=== PATIENT | male | born 1950 | race Caucasian/White ===

== ENCOUNTER 2018-09-25 | Outpatient (CLI) | payer MEDICARE ==
--- NOTE | 2018-09-25 09:42 | RAD ---
EXAM: Chest PA and lateral: HISTORY: Preoperative exam COMPARISON: None FINDINGS: Heart: Normal cardiac silhouette Aorta: Unremarkable Pulmonary vessels: Normal Costophrenic angles: Costophrenic angles are clear. Lungs: No consolidation or masses. Pneumothorax: No pneumothorax Osseous structures: No osseous abnormalities IMPRESSION: No acute cardiopulmonary process.
[2018-09-25 10:09] LABS: #Basophils 0.1 thou/uL (0.0-0.2); #Eosinphils 0.4 thou/uL (0.0-0.7); #Lymphocytes 1.9 thou/uL (1.20-3.40); #Monocytes 0.5 thou/uL (0.11-0.59); #Neutrophils 2.7 thou/uL (1.40-6.50); %Basophils 0.9 % (0.0-1.0); %Eosinophils 6.8 % (0.0-10.0); %Lymphocytes 34.1 % (21.0-51.0); %Monocytes 9.2 % (0.0-10.0); Hemoglobin 13.2 g/dL (14.0-18.0); Mean Corpuscular HGB CONC 33.3 g/dL (32.0-36.0); Mean Corpuscular Volume 90.2 fL (78.0-98.0); Mean Platelet Volume 7.4 fL (7.4-10.4); Platelet Count 217 thou/uL (130-400); RBC Distribution Width 12.7 % (11.5-14.5); Red Blood Cell (RBC) Count 4.41 mill/uL (4.70-6.10); White Blood Cell (WBC) Count 5.5 thou/uL (4.8-10.8)
[2018-09-25 10:12] LABS: Bilirubin Negative (Negative); Blood, Urine Negative (Negative); Clarity CLEAR (Clear); Glucose, Urine (Dipstick) Negative (Negative); Leukocyte Negative (Negative); Nitrite Negative (Negative); Protein, Urine (Dipstick) Negative (Neg-Trace); Specific Gravity, Urine 1.023 (1.002-1.036); Urobilinogen 0.2 mg/dL (0.2-1.0)
[2018-09-25 10:16] LABS: Prothrombin Time 13.7 SEC (12.0-14.7)
[2018-09-25 10:17] LABS: Bacteria/HPF None Seen HPF (None Seen); Hyaline Casts/LPF 0-3 HYALINE CAST LPF (0-3 Hyaline); RBC/HPF 0-3 HPF (0-3); Squamous Epithelial None Seen HPF (0-3); WBC/HPF 0-3 HPF (0-3)
[2018-09-25 10:27] LABS: Anion Gap 12 mmol/L (10-20); BUN (Urea Nitrogen) 19 mg/dL (8.4-25.7); Calc. Creatinine Clearance 0 mL/min (70-130); Calcium 8.9 mg/dL (7.8-10.44); Carbon Dioxide 26 mmol/L (23-31); Chloride 109 mmol/L (98-107); Estimated GFR-MDRD 90; Glucose 106 mg/dL (80-115); Potassium 3.5 mmol/L (3.5-5.1); Sodium 143 mmol/L (136-145)
== END 2018-09-25 00:01 | disposition home or self-care (01) ==
LOC: LABBT
PROVIDERS: ATTEND Orthopaedic Surgery
DX: Z01.818 Encounter for other preprocedural examination (principal); M17.11 Unilateral primary osteoarthritis, right knee
CPT/HCPCS: 71046; 80048; 81001; 85025; 85610; 87081; 93005; 93010

== ENCOUNTER 2018-10-07 06:15 | Inpatient (IN) | payer MEDICARE ==
[2018-10-07] MEDS ORDERED: Fentanyl 100 MCG/2 ML VIAL ONE ×4 (06:33→11:12)
[2018-10-07] MEDS ORDERED: Midazolam HCl 2 mg/2 ml Vial ONE ×2 (07:02→08:09)
[2018-10-07] MEDS ORDERED: Acetaminophen 325 MG TAB PO PRN (07:07)
[2018-10-07] MEDS ORDERED: diphenhydrAMINE 25 MG CAP PO PRN (07:07)
[2018-10-07] MEDS ORDERED: Promethazine HCl 25 MG/ML VIAL IM PRN ×2 (07:07→12:03)
[2018-10-07] MEDS ORDERED: Fentanyl 100 MCG/2 ML VIAL SLOW IVP PRN ×2 (07:07)
[2018-10-07] MEDS ORDERED: Zolpidem Tartrate 5 MG TAB PO PRN (07:07)
[2018-10-07] MEDS ORDERED: Ondansetron PF 4 MG/2 ML Vial IVP PRN (07:07)
[2018-10-07] MEDS ORDERED: Baclofen 10 MG TAB PO PRN (07:09)
[2018-10-07] MEDS ORDERED: Sodium Chloride 0.9% 100 ML ONE (07:19)
[2018-10-07] MEDS ORDERED: Tranexamic Acid 1,000 MG/10 ML VIAL ONE (07:19)
[2018-10-07] MEDS ORDERED: Propofol 1,000 MG/100 ML VIAL IV ONE (07:32)
[2018-10-07] MEDS ORDERED: Bupivacaine HCl 0.5%/Epinephrine 1:200,000/PF 30 ml Vial ONE (08:51)
[2018-10-07] MEDS ORDERED: Ondansetron PF 4 MG/2 ML Vial ONE (10:17)
--- NOTE | 2018-10-07 10:21 | RAD ---
Radiograph right knee 2 views: 10/07/2018 HISTORY: 68-year-old male status post surgery for right knee pain FINDINGS: Metallic prostheses covered the articular surfaces of the tibial plateau and distal femur. Resurfacin g changes of posterior aspect of patella. Gas within the joint space and subcutaneous emphysema indicate very recent surgical status. IMPRESSION: Very recently status post total right knee replacement arthroplasty
--- NOTE | 2018-10-07 10:42 | RAD ---
SINGLE VIEW OF THE CHEST: Comparison: 09-25-18 History: Aspiration pneumonia. FINDINGS: Single view of the chest shows a normal sized cardiomediastinal silhouette. There is no evidence of c onsolidation, mass, or pleural effusion. The bones are unremarkable. IMPRESSION: No evidence of acute cardiopulmonary disease. POS: [facility]
[2018-10-07 11:58] LABS: #Eosinphils 0.2 thou/uL (0.0-0.7); #Lymphocytes 1.5 thou/uL (1.20-3.40); #Monocytes 0.4 thou/uL (0.11-0.59); #Neutrophils 6.8 thou/uL (1.40-6.50); %Basophils 0.2 % (0.0-1.0); %Eosinophils 1.9 % (0.0-10.0); %Lymphocytes 16.9 % (21.0-51.0); %Monocytes 4.5 % (0.0-10.0); %Neutrophils 76.5 % (42.0-75.0); Hemoglobin 13.3 g/dL (14.0-18.0); Mean Corpuscular HGB CONC 32.8 g/dL (32.0-36.0); Mean Corpuscular Hemoglobin 29.7 pg (27.0-31.0); Mean Corpuscular Volume 90.5 fL (78.0-98.0); Mean Platelet Volume 7.1 fL (7.4-10.4); Platelet Count 235 thou/uL (130-400); RBC Distribution Width 12.7 % (11.5-14.5); Red Blood Cell (RBC) Count 4.47 mill/uL (4.70-6.10); White Blood Cell (WBC) Count 8.9 thou/uL (4.8-10.8)
[2018-10-07] MEDS ORDERED: Ondansetron HCl/PF 4 MG/2 ML Vial IVP PRN (12:03)
[2018-10-07] MEDS ORDERED: Promethazine HCl 25 MG/ML VIAL SLOW IVP PRN (12:03)
--- NOTE | 2018-10-07 12:05 | CON ---
DATE OF CONSULTATION: 10/07/2018 HISTORY OF PRESENT ILLNESS: Linwood Baptiste is a 68-year-old gentleman, status post right total knee surgery. Because of his history of Parkinson disease, his surgery was done under local anesthesia with IV sedation as per Anesthesia. Postoperative, he was found to be hypoxic, his sats dropped, placed on a Ventimask. His sats are still low in the high 80s. He was then placed on a BiPAP to which he has done better. Anesthesia noted that he was having microaspiration. X-ray taken postop shows no obvious pneumonia or infiltrates. On BiPAP, he appears comfortable. Denies any pain or difficulty breathing. He has never smoked. He tells me his primary care physician at [facility]. PAST MEDICAL HISTORY: Pertinent for hypertension, Parkinson disease, arthritis. CURRENT MEDICATIONS: 1. Protonix. 2. Amlodipine. 3. Meloxicam. 4. Gabapentin. 5. Carbidopa. 6. Baclofen. 7. Vitamins. PAST SURGERIES: Include otherwise, shoulder surgery, hernia, cholecystectomy. SOCIAL HISTORY: He is a teacher. Alcohol, none. Tobacco, none. FAMILY HISTORY: Otherwise unremarkable. REVIEW OF SYSTEMS: Ten-point negative. PHYSICAL EXAMINATION: VITAL SIGNS: Postop in the recovery room, his pulse is 80, respirations are 20, saturations 95% on BiPAP, 50% FiO2, blood pressure 130/80. GENERAL: Awake, alert, responsive. No pain. No discomfort. CHEST: Decreased breath sounds. No wheezing. CARDIAC: Normal S1 and S2. No gallops. ABDOMEN: No masses. LABORATORY DATA: His labs prior to surgery and chest x-ray were unremarkable. Repeat lab has been ordered. To note his pre-admission lab, white count 5000, hemoglobin and hematocrit 13 and 39, platelet count is normal. His chemistry profile was unremarkable. EKG was negative. IMPRESSION: Respiratory failure, retained secretions, microaspiration, status post right total knee, Parkinson's, hypertension, nonsmoker. Empirically started on clindamycin and neb treatments. I will transfer him to MICU. His condition gets worse. He can probably go to the ICU. Pulmonary/Critical Care will follow. Discuss with family as they arrive. Consultation note, 70 minutes, 50% direct patient care. Job ID: [id number]
[2018-10-07 12:20] LABS: ALT (SGPT) Less than 7 U/L (8-55); AST (SGOT) 19 U/L (5-34); Albumin 4.2 g/dL (3.4-4.8); Alkaline Phosphatase 61 U/L (40-150); Anion Gap 13 mmol/L (10-20); BUN (Urea Nitrogen) 23 mg/dL (8.4-25.7); Bilirubin, Total 0.9 mg/dL (0.2-1.2); Calc. Creatinine Clearance 85 mL/min (70-130); Calcium 8.5 mg/dL (7.8-10.44); Carbon Dioxide 25 mmol/L (23-31); Chloride 105 mmol/L (98-107); Estimated GFR-MDRD 82; Glucose 115 mg/dL (80-115); Potassium 3.7 mmol/L (3.5-5.1); Protein, Total 6.2 g/dL (5.8-8.1); Sodium 139 mmol/L (136-145)
[2018-10-07] MEDS: Carbidopa/Levodopa 25-100 mg Tablet PO SCH ×3 (13:14→16:53)
[2018-10-07] MEDS: Clindamycin/D5W 600 MG in Premix Bag 1 BAG IVPB SCH ×2 (13:14→20:19)
[2018-10-07] MEDS: Sodium Chloride 0.9% 1,000 ML IV SCH ×2 (13:14→22:26)
[2018-10-07] MEDS: Calcium Carbonate + Vit D 1 TAB PO SCH (13:15)
[2018-10-07] MEDS: Amlodipine 10 MG TAB PO SCH (13:15)
[2018-10-07] MEDS: Ascorbic Acid 500 mg Chewable Tablet PO SCH (13:15)
[2018-10-07] MEDS: Aspirin 81 mg Enteric Coated Tablet PO SCH ×2 (13:15→22:28)
[2018-10-07] MEDS ORDERED: PROPOFOL 200 MG/20 ML VIAL ONE (13:22)
[2018-10-07] MEDS ORDERED: Ketorolac Tromethamine 30 MG/ML VIAL ONE (13:22)
--- NOTE | 2018-10-07 13:36 | OP ---
DATE OF PROCEDURE: 10/07/2018 PREOPERATIVE DIAGNOSIS: End-stage tricompartmental osteoarthritis, right knee. POSTOPERATIVE DIAGNOSIS: End-stage tricompartmental osteoarthritis, right knee. PROCEDURE PERFORMED: Cemented cruciate sparing computer-assisted navigated right total knee arthroplasty. HASH SLINGER: David Husain PA-C ANESTHESIA: Spinal with monitored IV anesthesia. COMPONENT USED: [email or web address] Triathlon primary cemented cruciate sparing size 6 femoral component, with a size 5 cemented primary tibial base plate, 11 mm polyethylene fixed bearing insert, and an A32 patellar button. TOURNIQUET TIME: 58 minutes at 300 mmHg. ESTIMATED BLOOD LOSS: Less than 100. Input was 200 mL crystalloid. Output was 600 mL clear yellow urine. FINDINGS: End-stage severe degenerative tricompartmental disease, [id number] arthrosis, periarticular osteophyte formation, large serous effusion with Valdez cyst changes consistent with end-stage severe degenerative tricompartmental disease. DRAINS: None. SPECIMENS: None. COMPLICATIONS: None. COUNTS: Correct. INDICATIONS FOR SURGERY: Linwood is a 68-year-old white male, who has had progressive right knee pain walking for the last 5 to 7 years. He has failed conservative management, elected to proceed with total knee arthroplasty as definitive treatment for his pain. PROCEDURE IN DETAIL: After informed consent was obtained in the preoperative holding area, the patient was taken to the operative suite where general anesthesia was induced. Once adequate level of general anesthesia was obtained, the patient was positioned and a well-padded tourniquet was placed around the right proximal thigh. The right lower extremity was then prepped and draped in the usual sterile fashion. Prior to exsanguination, a time-out was called and all members of the surgical team agreed upon site, surgeon, and patient. The extremity was then exsanguinated and the tourniquet was raised. A midline longitudinal incision was then made directly over the patella extending 2 fingerbreadths above the superior pole of the patella and 2 fingerbreadths inferior to the inferior patellar pole of the patella. Deeper subcutaneous layers were dissected sharply and local bleeding was controlled with Bovie electrocautery. A quad tendon longitudinal split was then made sharply and a median parapatellar arthrotomy was carried out both sharp and with Bovie electrocautery, carried down to 1 fingerbreadth medial to the tibial tubercle. The knee was then placed into flexion and the patella was everted nicely, and a copious fat pad ectomy was performed, allowing for greater exposure of the tibia. The computer-assisted distal femoral fiducial was then placed and pinned firmly, and the distal femoral cutting guide was pinned firmly into place. The oscillating saw was then used to remove the appropriate amount of bone. The 4-in-1 cutting block was then placed on the distal femur and the oscillating saw was used to remove the appropriate amount of bone off the anterior, posterior, and chamfer cuts. After completion of bone cuts, the anterior cruciate ligament was resected sharply and the posterior cruciate ligament retractor was placed and the tibia was subluxed for better exposure. Partial meniscectomies were carried out, and the tibial computer-assisted fiducial was pinned, and the cutting guide was placed. Oscillating saw was then used to remove the bone, with Hohmann retractors used to take care and protect the collateral ligaments. After the tibial resection was performed, a laminar hospice nurse was placed in between the freshened bone cuts. The knee placed at 90 degrees and further bilateral meniscectomies were carried out, and the curved osteotome and curettage were used to remove any excess bone spurs in the posterior compartment. The trial femoral component, tibial baseplate were placed with the appropriate polyethylene trial insert with an appropriate polyethylene spacer and patellar button. The knee was taken through full range of motion with flexion and extension from 0 to 90 degrees and patellar broach squarely in the trochlea without any squinting or subluxation noted. The knee was also stable to varus and valgus stressing at 0, 15, 45, and 90 degrees of flexion. The drawer was negative. All trial components were then removed and the keel punch was used to provide the appropriate defect in the tibia with a mallet. The freshened bone cuts were copiously irrigated with pulsatile lavage of about 1.5 L to remove all excess debris. The freshened bone cuts were then dried with suction and lap sponge. The knee was placed in flexion and retractors were placed to provide access to all bone cuts. Tobramycin-impregnated methyl methacrylate cement was then placed on the freshened bone cuts and implants which were malleted firmly into place. Curettage and [place] elevators were used to remove any excess bone cement. The knee was placed into full extension and the patellar button was placed under compression, and the cement was allowed to cure. Once completed, the components were again taken through full range of motion and copious irrigation of the knee was carried out with another liter of normal saline. All components were inspected fully with full range of motion and varus and valgus stressing. There was no laxity noted and full extension was observed clinically. Primary closure was accomplished with #2 interrupted Vicryl stitch of the arthrotomy defect. This was oversewn with a #2 running Quill barbed stitch. The subcutaneous layer was then closed with a running 0 barbed Monocryl stitch and skin closure accomplished with a running subcuticular 3-0 Monocryl barbed Quill stitch and augmented with cement on the skin. Tourniquet was lowered. Good spontaneous return of distal pulses was noted clinically and a sterile dressing was applied to the incision. The procedure was terminated without any complications. The patient was awakened in the operative suite and taken to the recovery room in stable condition. Job ID: [id number]
[2018-10-07] MEDS: Ketorolac Tromethamine 30 MG/ML VIAL IVP SCH ×2 (14:48→22:27)
[2018-10-07] MEDS: CEFAZOLIN 2 GM in Premix Bag 1 BAG IVPB SCH ×2 (14:51→22:27)
[2018-10-07] MEDS: HYDROcodone/Acetaminophen 10/325 mg Tablet PO PRN ×2 (16:53→23:56)
[2018-10-07] MEDS: Gabapentin 300 MG CAP PO SCH (22:28)
[2018-10-07] MEDS: Carbidopa/Levodopa CR 50-200 mg Tablet PO SCH (22:28)
[2018-10-08] MEDS: Clindamycin/D5W 600 MG in Premix Bag 1 BAG IVPB SCH ×2 (03:18→12:07)
[2018-10-08] MEDS: Ketorolac Tromethamine 30 MG/ML VIAL IVP SCH ×3 (05:50→22:12)
[2018-10-08] MEDS: HYDROcodone/Acetaminophen 10/325 mg Tablet PO PRN ×3 (05:51→14:09)
[2018-10-08 06:51] LABS: Hemoglobin 11.2 g/dL (14.0-18.0); Mean Corpuscular HGB CONC 32.1 g/dL (32.0-36.0); Mean Corpuscular Hemoglobin 29.3 pg (27.0-31.0); Mean Corpuscular Volume 91.1 fL (78.0-98.0); Mean Platelet Volume 7.2 fL (7.4-10.4); Platelet Count 169 thou/uL (130-400); RBC Distribution Width 12.7 % (11.5-14.5); Red Blood Cell (RBC) Count 3.84 mill/uL (4.70-6.10); White Blood Cell (WBC) Count 10.5 thou/uL (4.8-10.8)
[2018-10-08] MEDS ORDERED: Promethazine HCl 25 MG/ML VIAL IM PRN (07:14)
[2018-10-08] MEDS ORDERED: Zolpidem Tartrate 5 MG TAB PO PRN (07:14)
[2018-10-08] MEDS ORDERED: Ondansetron PF 4 MG/2 ML Vial IVP PRN (07:14)
[2018-10-08] MEDS ORDERED: Acetaminophen 325 MG TAB PO PRN (07:14)
[2018-10-08] MEDS ORDERED: diphenhydrAMINE 25 MG CAP PO PRN (07:14)
[2018-10-08] MEDS ORDERED: Ferrous Gluconate 324 MG TAB PO SCH (08:00)
--- NOTE | 2018-10-08 08:14 | RAD ---
CHEST 1 VIEW: HISTORY: Followup pneumonia. COMPARISON: 10/07/2018. FINDINGS: There is some confluent parenchymal change in the left lower lobe retrocardiac region with some assoc iated left costophrenic angle blunting, evidence for a small pleural effusion. Mild bilateral vascul ar congestion. IMPRESSION: Evidence for left lower lobe pneumonia with small left pleural effusion and bilateral vascular conges tion. Followup for complete clearing. POS: OFF
[2018-10-08] MEDS ORDERED: hydrALAZINE 25 MG TAB PO PRN (08:39)
[2018-10-08] MEDS ORDERED: Senokot S 8.6-50 MG TAB PO SCH (09:00)
[2018-10-08] MEDS ORDERED: Multivitamin W/ Minerals 1 TAB PO SCH (09:00)
--- NOTE | 2018-10-08 09:45 | PRG ---
DATE OF SERVICE: 10/08/2018 SUBJECTIVE: This morning, he is awake, alert, and responsive. X-ray shows a left retrocardiac density, possibly aspiration pneumonia. OBJECTIVE: VITAL SIGNS: Pulse 82, respiratory rate 16, sats 100% on 1 L, blood pressure 140/70. GENERAL: He is awake, alert, responsive, no distress. No cough. CHEST: Decreased breath sounds. No wheezing. CARDIAC: Normal S1 and S2. No gallops. IMPRESSION: 1. Status post right total knee. 2. Hypoxemic respiratory failure postop with minimal aspiration resolved. PLAN: He will be transferred out of the MICU to the surgical floor. Continue PT. Switch antibiotics to p.o. medication tomorrow. Job ID: [id number] [facility]
[2018-10-08] MEDS: Ascorbic Acid 500 mg Chewable Tablet PO SCH (10:21)
[2018-10-08] MEDS: Calcium Carbonate + Vit D 1 TAB PO SCH (10:23)
[2018-10-08] MEDS: Aspirin 81 mg Enteric Coated Tablet PO SCH ×2 (10:23→20:35)
[2018-10-08] MEDS: Lactinex Tablet PO SCH (10:24)
[2018-10-08] MEDS: Amlodipine 10 MG TAB PO SCH (10:24)
[2018-10-08] MEDS: Carbidopa/Levodopa 25-100 mg Tablet PO SCH ×3 (10:24→16:31)
[2018-10-08] MEDS: Ferrous Gluconate 324 MG TAB PO SCH ×2 (10:25→20:36)
[2018-10-08] MEDS: Multivitamin W/ Minerals 1 TAB PO SCH (10:25)
[2018-10-08] MEDS: Senokot S 8.6-50 MG TAB PO SCH ×2 (10:25→20:37)
--- NOTE | 2018-10-08 10:37 | PRG ---
DATE OF SERVICE: 10/08/2018 SUBJECTIVE: Linwood is a 68-year-old male, who is postop day #1 from right total knee arthroplasty. He had a little bit of aspiration yesterday during the case, and therefore, he was placed in intensive care unit. Dr. Goins was consulted to observe him overnight, and he was given supplemental oxygen and BiPAP. He has done incredibly well overnight and he has improved. He is now breathing on the nasal cannula and saturating about 98%. He has no complaints and no shortness of breath. OBJECTIVE: VITAL SIGNS: Temperature 98.8, pulse 82, respiratory rate 16 and nonlabored, and O2 saturations 100% on room air. GENERAL: He is alert and oriented to person, place, time and situation, grossly nonfocal, appropriate and responsive to examiner. EXTREMITIES: Incision is clean without erythema. There is no strikethrough and he is neurovascularly intact in the right lower extremity. LABORATORY DATA: Hemoglobin and hematocrit of 11.2 and 35.0. IMPRESSION: 1. This is a 68-year-old male postop day #1 right total knee arthroplasty. 2. Woazbcm-Kwvus-Mrfbv disease. 3. Parkinson disease. 4. Hypertension. 5. Osteoarthritis. PLAN: Continue current care. Transfer to floor. I think he is okay to move to the program and start progressing toward discharge. Job ID: [id number]
[2018-10-08] MEDS: Sodium Chloride 0.9% 1,000 ML IV SCH ×2 (12:12→17:51)
[2018-10-08 13:00] VITALS: BMI 23.7
--- NOTE | 2018-10-08 16:20 | CON ---
DATE OF CONSULTATION: PRIMARY CARE PHYSICIAN: Dr. Villalta at [facility]. MORNING SHOW PRODUCER: Dr. Peterson. HISTORY OF PRESENT ILLNESS: Mr. Baptiste is a pleasant 68-year-old gentleman, who has a history of Parkinson disease as well as hypertension. He was admitted for an elective right total knee replacement. He had the procedure performed yesterday, and he had the procedure done under local anesthesia due to his Parkinson disease, and postoperatively, he was noted to have some evidence of hypoxemia, and there was some concern that he may have had some microaspiration, and for this reason, he was placed in the IMCU. He was placed on BiPAP for a short period of time. Today, I see him the following day. He is off BiPAP and says he feels fine. He says he never noticed any problems with regard to breathing difficulty and denies feeling short of breath at this time. He also denies any significant cough. There is no fever or chills. He denies any nausea. No vomiting. He denies any abdominal pain, but he does have significant gastroesophageal reflux disease and states that he would like to continue his medication for reflux. REVIEW OF SYSTEMS: All systems were reviewed and are negative except for that mentioned in the history of present illness. PAST MEDICAL HISTORY: Significant for Parkinson disease, hypertension, osteoarthritis, and CMT. PAST SURGICAL HISTORY: He has had shoulder surgery and hernia repair as well as cholecystectomy. ALLERGIES: ANTIHISTAMINES AND ALKYLAMINE. SOCIAL HISTORY: He is a retired teacher in high school. He denies any alcohol use at this time, but used to drink. He is a nonsmoker. He is and has 2 children. Code status is full code. FAMILY HISTORY: He said all of his relatives lived into their 90s. His mother lived to be 93. No known medical conditions. MEDICATIONS: Include: 1. Amlodipine 10 mg daily. 2. Vitamin C. 3. Baclofen 10 mg p.r.n. 4. Carbidopa/levodopa 3 times a day. 5. Neurontin 300 mg q.p.m. 6. Meloxicam 15 mg daily. 7. Pantoprazole 40 mg daily. PHYSICAL EXAMINATION: GENERAL: He is alert and oriented. He appears to be in no acute distress. He is well developed and well nourished. VITAL SIGNS: Blood pressure was 141/72, heart rate 82, respiratory rate of 16, temperature is 98.8. HEENT: His pupils are equal, round, and reactive to light. Extraocular muscles are intact. His sclerae are anicteric. Throat; no erythema, no exudates. NECK: No adenopathy. No bruits. LUNGS: He has some bilateral wheezing as well as occasional rhonchi and some rales at the bases. Good excursion. CARDIOVASCULAR: He has normal S1 and S2. There is no S3 or S4. He did have a slight 2/6 systolic murmur. ABDOMEN: Soft. It is nontender and nondistended. Positive for bowel sounds. There was no rebound. No guarding. No organomegaly. EXTREMITIES: There was no edema. No calf tenderness. No joint effusions. SKIN AND INTEGUMENT: There are no skin changes. No rash. NEUROLOGIC: Cranial nerves 2 through 12 are intact, and muscle strength is intact. LABORATORY RESULTS: White blood cell count was 10.5, hemoglobin 11.2, hematocrit is 35, platelet count is 169. His sodium was 139, potassium 3.7, chloride is 105, CO2 is 25, BUN of 23, creatinine 0.92, glucose is 115. ASSESSMENT: 1. This is a pleasant 68-year-old gentleman, who is being admitted for an elective right total knee replacement. Postoperatively, he had evidence of aspiration and an acute hypoxic respiratory failure. He is currently in the IMCU. He has already been seen by the process artist, and he has been placed on clindamycin with regard to the aspiration. We will continue clindamycin, and we will add Florastor for protection against development of opportunistic diarrhea. 2. Hypertension. We will continue his home medications, amlodipine and have p.r.n. medications available. 3. Parkinson disease. This appears to be clinically stable. We will continue carbidopa and levodopa. 4. Gastroesophageal reflux disease. Continue pantoprazole, and we will be happy to follow along with you. Job ID: [id number]
[2018-10-08] MEDS: Calcium Carbonate 500 MG ChewTAB PO PRN ×2 (17:38→22:19)
[2018-10-08] MEDS ORDERED: Tamsulosin HCl 0.4 MG CAP PO SCH (18:45)
[2018-10-08] MEDS: Clindamycin 150 MG CAP PO SCH (20:35)
[2018-10-08] MEDS: Gabapentin 300 MG CAP PO SCH (20:36)
[2018-10-08] MEDS: Carbidopa/Levodopa CR 50-200 mg Tablet PO SCH (22:12)
[2018-10-09] MEDS: HYDROcodone/Acetaminophen 10/325 mg Tablet PO PRN ×2 (00:30→23:52)
[2018-10-09] MEDS: Sodium Chloride 0.9% 1,000 ML IV SCH ×3 (00:34→21:11)
[2018-10-09] MEDS: Clindamycin 150 MG CAP PO SCH (05:01)
[2018-10-09 05:05] LABS: Hemoglobin 10.1 g/dL (14.0-18.0); Mean Corpuscular Volume 91.1 fL (78.0-98.0); Mean Platelet Volume 7.5 fL (7.4-10.4); Platelet Count 153 thou/uL (130-400); RBC Distribution Width 12.7 % (11.5-14.5); Red Blood Cell (RBC) Count 3.26 mill/uL (4.70-6.10); White Blood Cell (WBC) Count 8.5 thou/uL (4.8-10.8)
[2018-10-09] MEDS: Ketorolac Tromethamine 30 MG/ML VIAL IVP SCH ×2 (05:08→13:16)
[2018-10-09] MEDS: Carbidopa/Levodopa 25-100 mg Tablet PO SCH ×3 (08:57→16:50)
[2018-10-09] MEDS: Lactinex Tablet PO SCH (08:57)
[2018-10-09] MEDS: Ascorbic Acid 500 mg Chewable Tablet PO SCH (08:57)
[2018-10-09] MEDS: Multivitamin W/ Minerals 1 TAB PO SCH (08:57)
[2018-10-09] MEDS: Senokot S 8.6-50 MG TAB PO SCH ×2 (08:57→21:08)
[2018-10-09] MEDS: Tamsulosin HCl 0.4 MG CAP PO SCH (08:57)
[2018-10-09] MEDS: Amlodipine 10 MG TAB PO SCH (08:58)
[2018-10-09] MEDS: Calcium Carbonate + Vit D 1 TAB PO SCH (08:58)
[2018-10-09] MEDS: Aspirin 81 mg Enteric Coated Tablet PO SCH ×2 (08:59→21:07)
[2018-10-09] MEDS: Ferrous Gluconate 324 MG TAB PO SCH ×2 (08:59→21:08)
[2018-10-09 09:00] VITALS: BP 136/67
--- NOTE | 2018-10-09 09:32 | PRG ---
DATE OF SERVICE: 10/09/2018 SUBJECTIVE: This morning, he is better and less short of breath. OBJECTIVE: VITAL SIGNS: His saturations are apparently 92% on room air, blood pressure 130/64, maximum temperature was 99, pulse 99. GENERAL: Denies any shortness of breath. CHEST: Decreased breath sounds. No wheezing. CARDIAC: Normal S1 and S2. No gallops. ABDOMEN: No masses. LABORATORY DATA: H and H unremarkable. IMPRESSION: Respiratory failure, status post aspiration, left retrocardiac density. PLAN: Switch him over to Augmentin. Continue PT, supportive care. Disposition as per Surgery. Job ID: [id number]
--- NOTE | 2018-10-09 15:11 | PDOC.PN ---
- Subjective Encounter Start Date: 10/09/18 Encounter Start Time: 15:09 Subjective: feels well. no SOB/CP/Fever/chills -: some acid reflux - Objective MAR Reviewed: Yes Vital Signs & Weight: Vital Signs (12 hours) Temp Pulse Resp BP Pulse Ox 10/09/18 14:47 98.8 F 77 15 99 10/09/18 08:58 99 136/67 10/09/18 08:18 95 10/09/18 08:16 82 22 H 95 10/09/18 07:15 99.0 F 10/09/18 04:37 99.6 F Weight Admit Weight 170 lb Weight 170 lb Most Recent Monitor Data Heart Rate from ECG 99 NIBP 134/71 NIBP BP-Mean 92 Respiration from ECG 19 SpO2 92 I&O: 10/08/18 10/09/18 10/10/18 06:59 06:59 06:59 Intake Total 2973 2070 Output Total 1275 1100 Balance 1698 970 Result Diagrams: 10/09/18 04:03 10/07/18 11:33 Phys Exam - Physical Examination Constitutional: NAD HEENT: PERRLA, moist MMs, sclera anicteric, oral pharynx no lesions Neck: no nodes, no JVD, supple, full ROM Respiratory: no wheezing, no rales, no rhonchi, clear to auscultation bilateral Cardiovascular: RRR, no significant murmur Gastrointestinal: soft, non-tender, no distention, positive bowel sounds Musculoskeletal: no edema, pulses present Neurological: non-focal, normal sensation, moves all 4 limbs Psychiatric: normal affect, A&O x 3 Skin: no rash Dx/Plan (1) Aspiration pneumonitis Code(s): J69.0 - PNEUMONITIS DUE TO INHALATION OF FOOD AND VOMIT Status: Acute (2) HTN (hypertension) Code(s): I10 - ESSENTIAL (PRIMARY) HYPERTENSION Status: Chronic Comment: controlled. cont Amlodipine,prn meds (3) Parkinson disease Code(s): G20 - PARKINSON'S DISEASE Status: Chronic Comment: stable. cont sinemet (4) GERD (gastroesophageal reflux disease) Code(s): K21.9 - GASTRO-ESOPHAGEAL REFLUX DISEASE WITHOUT ESOPHAGITIS Status: Chronic Comment: cont PPI - Plan plan discussed w/ family, continue antibiotics, respiratory therapy, incentive spirometry, out of bed/ambulate, DVT proph w/SCDs Abx per PCCM -: HD stable -: IM team will follow -: am labs * . Review of Systems - Review of Systems Constitutional: negative: fever, chills, sweats, weakness, malaise, other ENT: negative: Ear Pain, Ear Discharge, Nose Pain, Nose Discharge, Nose Congestion, Mouth Pain, Mouth Swelling, Throat Pain, Throat Swelling, Other Respiratory: negative: Cough, Dry, Shortness of Breath, Hemoptysis, SOB with Excertion, Pleuritic Pain, Sputum, Wheezing Cardiovascular: negative: chest pain, palpitations, orthopnea, paroxysmal nocturnal dyspnea, edema, light headedness, other Gastrointestinal: Abdominal Pain. negative: Nausea, Vomiting, Diarrhea, Constipation, Melena, Hematochezia, Other Genitourinary: negative: Dysuria, Frequency, Incontinence, Hematuria, Retention , Other Musculoskeletal: negative: Neck Pain, Shoulder Pain, Arm Pain, Back Pain, Hand Pain, Leg Pain, Foot Pain, Other Skin: negative: Rash, Lesions, [place], Bruising, Other Neurological: negative: Weakness, Numbness, Incoordination, Change in Speech, Confusion, Seizures, Other - Medications/Allergies Allergies/Adverse Reactions: Allergies Allergy/AdvReac Type Severity Reaction Status Date / Time Antihistamines - Alkylamine AdvReac Intermediate "causes pt Verified 10/07/18 12 :28 not to be able to urinate" Medications: Current Medications Acetaminophen (Tylenol) 650 mg PO Q4H PRN PRN Reason: Headache/Fever or Pain Hydrocodone Bitart/Acetaminophen ([place] 10/325) 1 tab PO Q4H PRN PRN Reason: Moderate Pain (4-6) Last Admin: 10/09/18 00:30 Dose: 1 tab Hydrocodone Bitart/Acetaminophen ([place] 10/325) 2 tab PO Q4H PRN PRN Reason: Severe Pain (7-10) Last Admin: 10/08/18 14:09 Dose: 2 tab Acidophilus (Floranex) 1 tab PO DAILY [facility] Last Admin: 10/09/18 08:57 Dose: 1 tab Albuterol/Ipratropium (Duoneb) 3 ml NEB [id number] [facility] Last Admin: 10/09/18 14:47 Dose: 3 ml Amlodipine Besylate (Norvasc) 10 mg PO DAILY [facility] Last Admin: 10/09/18 08:58 Dose: 10 mg Amoxicillin/Clavulanate Potassium (Augmentin) 500 mg PO Q12HR [facility] Stop: 10/14/18 21:01 Ascorbic Acid (Vitamin C) 1,000 mg PO DAILY [facility] Last Admin: 10/09/18 08:57 Dose: 1,000 mg Aspirin (Ecotrin) 81 mg PO BID [facility] Last Admin: 10/09/18 08:59 Dose: Not Given Baclofen (Lioresal) 10 mg PO PRN PRN PRN Reason: Muscle Pain Calcium Carbonate (Tums) 1,000 mg PO Q4H PRN PRN Reason: Heartburn or Indigestion Last Admin: 10/08/18 22:19 Dose: 1,000 mg Calcium/Vitamin D (Caltrate 600 + Vit D) 1 tab PO QAM-[facility] Last Admin: 10/09/18 08:58 Dose: 1 tab Carbidopa/Levodopa (Sinemet 25-100) 3 tab PO TID-[facility] Last Admin: 10/09/18 11:33 Dose: 3 tab Carbidopa/Levodopa (Sinemet Cr 50/200) 1 tab PO QPM [facility] Last Admin: 10/08/18 22:12 Dose: 1 tab Diphenhydramine HCl (Benadryl) 25 mg PO Q6H PRN PRN Reason: Itching Fentanyl (Sublimaze) 50 mcg SLOW IVP Q30MIN PRN PRN Reason: Moderate Pain (4-6) Last Admin: 10/07/18 15:21 Dose: 50 mcg Fentanyl (Sublimaze) 100 mcg SLOW IVP Q1H PRN PRN Reason: Severe Pain (7-10) Last Admin: 10/07/18 13:13 Dose: 100 mcg Ferrous Gluconate (Fergon) 324 mg PO BID [facility] Last Admin: 10/09/18 08:59 Dose: Not Given Gabapentin (Neurontin) 300 mg PO QPM [facility] Last Admin: 10/08/18 20:36 Dose: 300 mg Hydralazine HCl (Apresoline) 25 mg PO TID PRN PRN Reason: SBP Greater Than 170 Sodium Chloride (Normal Saline 0.9%) 1,000 mls @ 100 mls/hr IV .Q10H [facility] Last Admin: 10/09/18 08:59 Dose: Not Given Iron/Minerals/Multivitamins (Theragran M) 1 tab PO DAILY [facility] Last Admin: 10/09/18 08:57 Dose: 1 tab Ondansetron HCl (Zofran) 4 mg IVP Q6H PRN PRN Reason: Nausea/Vomiting Last Admin: 10/08/18 16:32 Dose: 4 mg Pantoprazole Sodium (Protonix) 40 mg PO DAILY [facility] Last Admin: 10/09/18 08:58 Dose: 40 mg Promethazine HCl (Phenergan) 12.5 mg IM Q4H PRN PRN Reason: Nausea/Vomiting Senna/Docusate Sodium (Senokot S) 2 tab PO BID [facility] Last Admin: 10/09/18 08:57 Dose: Not Given Sodium Chloride (Flush - Normal Saline) 10 ml IVF PRN PRN PRN Reason: Saline Flush Tamsulosin HCl (Flomax) 0.8 mg PO DAILY [facility] Last Admin: 10/09/18 08:57 Dose: Not Given Zolpidem Tartrate (Ambien) 5 mg PO HSPRN PRN PRN Reason: Insomnia
[2018-10-09] MEDS: Carbidopa/Levodopa CR 50-200 mg Tablet PO SCH (21:07)
[2018-10-09] MEDS: Amoxicillin/Potassium Clav 500 MG TAB PO SCH (21:07)
[2018-10-09] MEDS: Gabapentin 300 MG CAP PO SCH (21:07)
[2018-10-10 05:15] LABS: Hemoglobin 9.9 g/dL (14.0-18.0); Mean Corpuscular HGB CONC 33.2 g/dL (32.0-36.0); Mean Corpuscular Hemoglobin 30.1 pg (27.0-31.0); Mean Corpuscular Volume 90.6 fL (78.0-98.0); Mean Platelet Volume 7.4 fL (7.4-10.4); Platelet Count 169 thou/uL (130-400); RBC Distribution Width 12.8 % (11.5-14.5); White Blood Cell (WBC) Count 8.3 thou/uL (4.8-10.8)
[2018-10-10 05:52] LABS: Anion Gap 10 mmol/L (10-20); BUN (Urea Nitrogen) 12 mg/dL (8.4-25.7); Calc. Creatinine Clearance 100 mL/min (70-130); Calcium 8.3 mg/dL (7.8-10.44); Carbon Dioxide 29 mmol/L (23-31); Chloride 102 mmol/L (98-107); Estimated GFR-MDRD Greater than 90; Glucose 93 mg/dL (80-115); Potassium 3.3 mmol/L (3.5-5.1); Sodium 138 mmol/L (136-145)
[2018-10-10] MEDS: Sodium Chloride 0.9% 1,000 ML IV SCH (07:20)
[2018-10-10 07:43] VITALS: TEMP 99.4
[2018-10-10] MEDS: Calcium Carbonate + Vit D 1 TAB PO SCH (08:12)
[2018-10-10] MEDS: Amlodipine 10 MG TAB PO SCH (08:12)
[2018-10-10] MEDS: Carbidopa/Levodopa 25-100 mg Tablet PO SCH (08:12)
[2018-10-10] MEDS: Aspirin 81 mg Enteric Coated Tablet PO SCH (08:13)
[2018-10-10] MEDS: Amoxicillin/Potassium Clav 500 MG TAB PO SCH (08:13)
[2018-10-10] MEDS: Ferrous Gluconate 324 MG TAB PO SCH (08:13)
[2018-10-10] MEDS: Ascorbic Acid 500 mg Chewable Tablet PO SCH (08:13)
[2018-10-10] MEDS: Lactinex Tablet PO SCH (08:14)
[2018-10-10] MEDS: Tamsulosin HCl 0.4 MG CAP PO SCH (08:14)
[2018-10-10] MEDS: Multivitamin W/ Minerals 1 TAB PO SCH (08:14)
[2018-10-10] MEDS: Senokot S 8.6-50 MG TAB PO SCH (08:14)
--- NOTE | 2018-10-10 08:56 | PRG ---
DATE OF SERVICE: 10/10/2018 SUBJECTIVE: A 68-year-old gentleman, this morning, he is much improved. His temperature is low-grade, 99. His right knee is swollen. PHYSICAL EXAMINATION: VITAL SIGNS: Blood pressure 148/82, respiratory rate 18, has difficulty breathing. CHEST: No wheezing, crackles. CARDIAC: Normal S1, S2. No gallops. ABDOMEN: No masses. LABORATORY DATA: Lytes are normal. White count is normal. IMPRESSION: 1. Status post total knee. 2. Aspiration pneumonia. PLAN: He is ready to be discharged home, Augmentin for 5 five more days. Follow up with his primary care physician. He can see us in the office as needed. Job ID: [id number]
--- NOTE | 2018-10-10 19:53 | PDOC.EVN ---
Event Note - Event Note Event Note: Pt Discharged by primary team.could not evaluate.chart reviewed and seems stable for DC
== END 2018-10-10 09:37 | disposition home or self-care (01) | DRG 469 ==
LOC: SDC 06:15 → IMCU/EMU 12:06
PROVIDERS: ADMIT Orthopaedic Surgery; ATTEND Orthopaedic Surgery
PROC: 0SRC0J9 Replacement of Right Knee Joint with Synthetic Substitute, Cemented, Open Approach (ICD-10-PCS; principal; 2018-10-07)
DX: M17.11 Unilateral primary osteoarthritis, right knee (principal); J69.0 Pneumonitis due to inhalation of food and vomit; J95.821 Acute postprocedural respiratory failure; J95.89 Other postprocedural complications and disorders of respiratory system, not elsewhere classified; M25.761 Osteophyte, right knee; M25.461 Effusion, right knee; M71.21 Synovial cyst of popliteal space [Baker], right knee; G20 Parkinson's disease; I10 Essential (primary) hypertension; K21.9 Gastro-esophageal reflux disease without esophagitis; G60.0 Hereditary motor and sensory neuropathy; Y83.8 Other surgical procedures as the cause of abnormal reaction of the patient, or of later complication, without mention of misadventure at the time of the procedure; Z79.899 Other long term (current) drug therapy; Z90.49 Acquired absence of other specified parts of digestive tract
CPT/HCPCS: 36415; 71045; 80048; 80053; 85025; 85027; 86850; 86900; 86901; 94640; 94660; C1713; C1776; J0131; J0670; J0690; J1885; J2250; J2405; J2550; J2704; J3010; J3370; J3490; J7620